=== PATIENT | male | born 1965 | race Caucasian/White ===

== ENCOUNTER 2016-06-07 09:04 | Emergency (ER) | payer OTHER ==
--- NOTE | ~2016-06-07 | CR230 ---
[facility] A Service of [facility] & [facility] RADIOLOGY TEXT RESULTS PATIENT: RODGER SAMUEL LOCATION: [facility] : 65 UNIT #: [id number] AGE: [address]: Ari Moran SEX: M ORDER DR: [id number] [facility] [address] [place], [place] [address] [id number] MR#: [id number] Acc #: [id number] NAME: RODGER SAMUEL : 1965 SEX: M STUDY DATE/TIME: 06/07/2016 7:57 UNIT: [facility] ROOM: STUDY DESCRIPTION: CR Shoulder Min 2 View Rt Attending Physician: Er Doctor [facility] Ordering Physician: Ed Doctor [id number] areli [facility] Primary Care Physician: John Lowery M.D. MEDICAL IMAGING REPORT This report is preliminary unless electronic signature is present EXAM Right shoulder series, 06/07/2016 HISTORY Pain. Injured at work lifting a heavy [place]. [place] a pop in shoulder. 40 years ago patient had scapula flap removed to graft to right knee for tear. FINDINGS AP internal and external rotation views right shoulder presented with transscapular view. No traumatic fracture or malalignment. Degenerative changes in the acromioclavicular joint. No acute periarticular soft tissue abnormalities. Surgical clips in the axillary soft tissues. Visualized ribs intact. Visualized pulmonary parenchyma clear. Dictated by... Chan Acevedo M.D. THIS IS AN ELECTRONICALLY VERIFIED REPORT Chan Acevedo M.D. at 06/08/2016 7:54 AM Donovan TD: 06/07/2016 09:48 JOB #: [id number] MEDICAL IMAGING REPORT COPY
[~2016-06-07 09:04] MED LIST: COUMADIN3 MG PO; FLEXERIL PO; FLEXERIL10 MG PO; HYDROCODON-ACE1 EAC5 PO; IBUPROFEN200 M1 PO; IBUPROFEN800 MG PO; KETOPROFEN PO; MOBIC15 MG PO; MOTRIN PM CAPL1 EACH PO; PHENERGAN PO; ULTRAM PO; VICODIN 5/500 T1 TAB PO
== END 2016-06-07 09:20 | disposition home or self-care (01) ==
LOC: CED 09:04
DX: S43.401A Unspecified sprain of right shoulder joint, initial encounter (principal); M19.011 Primary osteoarthritis, right shoulder; R03.0 Elevated blood-pressure reading, without diagnosis of hypertension; F17.210 Nicotine dependence, cigarettes, uncomplicated; X58.XXXA Exposure to other specified factors, initial encounter; Y92.69 Other specified industrial and construction area as the place of occurrence of the external cause
CPT/HCPCS: 73030; 96372; 99283